=== PATIENT | male | born 1970 | race Caucasian/White ===

== ENCOUNTER 2020-02-08 13:00 | Emergency (ER) | payer OTHER, SELFPAY ==
[2020-02-08 14:43] VITALS: BP 186/110; PULSE 80; RESP 18; TEMP 36.7; BMI 31.0
--- NOTE | 2020-02-08 16:25 | ED.ABDPAIN ---
HPI - Abdominal Pain General Chief Complaint: Abdominal Pain Stated Complaint: kidney pain Time Seen by Provider: 02/08/20 15:30 Source: patient Mode of arrival: ambulatory Limitations: no limitations History of Present Illness MD elicited complaint: flank pain Pertinent past history: none Onset (ago): day(s) (4) Pain Consistency: constant Location: L flank Severity: moderate Quality: aching Radiation: suprapubic Migration to: no migration Exacerbating factors: movement Relieving factors: nothing Associated symptoms: dysuria Treatments prior to arrival: NSAIDs Related Data Previous Rx's Medication Instructions Recorded diazepam [Valium] 5 mg PO TID PRN #10 tab 02/08/20 ibuprofen 600 mg PO Q6H PRN #30 tab 02/08/20 Allergies Allergy/AdvReac Type Severity Reaction Status Date / Time No Known Allergies Allergy Verified 02/08/20 14:48 Review of Systems Review of Systems Constitutional : No Fever, No Chills ENT/Mouth : No sore throat Eyes: No Eye Pain, No Swelling, No Redness Cardiovascular : No Chest Pain, No SOB Respiratory : No Cough, No Sputum, No Wheezing Gastrointestinal : no Nausea, no Vomiting, No Diarrhea, positive abdominal pain Genitourinary : positive Dysuria, positive urinary frequency, noHematuria, positive Flank Pain, positive hesitancy Musculoskeletal : No joint pain, No Myalgias Skin : No Skin Lesions, No rash Neuro : No Weakness, No Numbness, No Headache Psych : No Anxiety/Panic, No Depression Heme/Lymph: No Bruising, No Lymphadenopathy Endocrine : No Polyuria, No Polydipsia All other systems reviewed and are negative Physical Exam Vital Signs: Vital Signs: Vital Signs Temp Pulse Resp BP 02/08/20 14:43 98.1 F 80 18 186/110 H Body Mass Index 31.0 Appearance: Alert. Oriented X3. No acute distress. Eyes: Pupils equal, round and reactive to light. ENT: Pharynx normal. Neck: Normal inspection. Neck supple. CVS: Normal heart rate and rhythm. Pulses normal. Respiratory: No respiratory distress. Breath sounds normal. Abdomen: Soft and ttp LLQ mild Skin: Skin warm and dry. Normal skin color. Normal skin turgor. dry patches on left back no erythema/infection/vesicles Extremities: No lower extremity edema. No calf ttp Neuro: Oriented X 3. No motor deficit. No sensory deficit. Course Course Course Narrative: no acute findings at this time will DC home with medications and MRs, work note MDM - Abdominal Pain MDM Narrative Medical decision making narrative: 49 yo male with L flank pain and left low back pain with dysuria x 4 days, labs, IV morphine for pain, UA, CT scan for renal colic/mass, dispo per results and findings Lab Data Result diagrams: 02/08/20 17:30 02/08/20 17:30 Labs: Lab Results 02/08/20 02/08/20 02/08/20 Range/Units 17:30 17:30 17:30 WBC 7.5 (4.8-10.8) X10*3/uL RBC 4.56 L (4.60-5.80) X10*6/uL Hgb 13.9 L (14.0-18.0) g/dl Hct 41.2 L (42-52) % MCV 90.4 (80-98) fL MCH 30.5 (27.0-33.0) pg MCHC 33.7 (31.0-36.0) g/dl RDW 12.6 (11.0-16.0) % Plt Count 269 (160-400) X10*3/uL MPV 10.9 (9.4-12.4) fL Immature Gran % (Auto) 0.4 (0.0-0.4) % Neut % (Auto) 59.9 (45-73) % Lymph % (Auto) 28.6 (20-40) % Cloud % (Auto) 9.0 (2-11) % Eos % (Auto) 1.6 (0-4) % Baso % (Auto) 0.5 (0-2) % Lymph # (Auto) 2.2 (1.2-4.9) X10*3/uL [place] # (Auto) 0.7 (0.1-1.2) X10*3/uL Eos # (Auto) 0.1 (0.0-0.4) X10*3/uL Baso # (Auto) 0.0 (0.0-0.2) X10*3/uL Abs Immat Gran (auto) 0.03 (0.00-0.03) X10*3/uL Absolute Neuts (auto) 4.5 (2.0-8.3) X10*3/uL Absolute Nucleated RBC 0.000 (0.0-0.012) X10*3/uL Nucleated RBC % (auto) 0.0 (0.0-0.2) /100WBC Hold Blue Top SEE NOTE Sodium 139 (135-145) mmol/L Potassium 4.2 (3.3-5.1) mmol/l Chloride 104 (96-108) mmol/L Carbon Dioxide 26 (22-29) mmol/L Anion Gap 13 (12-20) BUN 18 H (9-16) mg/dL Creatinine 0.74 (0.5-1.4) mg/dL Estim Creat Clear Calc 129.0 Estimated GFR > 60 Random Glucose 117 H (60-115) mg/dL Calcium 9.2 (8.4-10.2) mg/dL Magnesium 2.3 (1.6-2.6) mg/dL Total Bilirubin 0.3 (0.0-1.0) mg/dL Direct Bilirubin < 0.2 (0.0-0.5) mg/dL AST 25 (5-37) U/L ALT 31 (0-40) U/L Alkaline Phosphatase 80 (39-117) U/L Total Protein 8.0 (6.5-8.0) g/dL Albumin 4.6 (3.5-5.0) g/dL Lipase 24 (8-78) U/L Urine Color Urine Appearance Urine pH (5.0-8.0) Ur Specific [place] (1.005-1.025) Urine Protein (NEG-TRACE) MG/DL Urine Glucose (UA) (NEG) MG/DL Urine Ketones (NEG) MG/DL Urine Blood (NEG) Urine Nitrite (NEG) Ur Leukocyte Esterase (NEG) Urine RBC (0) /HPF Urine WBC (0-4) /HPF Ur Squamous Epith Cells /LPF Urine Bacteria /LPF 02/08/20 Range/Units 17:30 WBC (4.8-10.8) X10*3/uL RBC (4.60-5.80) X10*6/uL Hgb (14.0-18.0) g/dl Hct (42-52) % MCV (80-98) fL MCH (27.0-33.0) pg MCHC (31.0-36.0) g/dl RDW (11.0-16.0) % Plt Count (160-400) X10*3/uL MPV (9.4-12.4) fL Immature Gran % (Auto) (0.0-0.4) % Neut % (Auto) (45-73) % Lymph % (Auto) (20-40) % Cloud % (Auto) (2-11) % Eos % (Auto) (0-4) % Baso % (Auto) (0-2) % Lymph # (Auto) (1.2-4.9) X10*3/uL Cloud # (Auto) (0.1-1.2) X10*3/uL Eos # (Auto) (0.0-0.4) X10*3/uL Baso # (Auto) (0.0-0.2) X10*3/uL Abs Immat Gran (auto) (0.00-0.03) X10*3/uL Absolute Neuts (auto) (2.0-8.3) X10*3/uL Absolute Nucleated RBC (0.0-0.012) X10*3/uL Nucleated RBC % (auto) (0.0-0.2) /100WBC Hold Blue Top Sodium (135-145) mmol/L Potassium (3.3-5.1) mmol/l Chloride (96-108) mmol/L Carbon Dioxide (22-29) mmol/L Anion Gap (12-20) BUN (9-16) mg/dL Creatinine (0.5-1.4) mg/dL Estim Creat Clear Calc Estimated GFR Random Glucose (60-115) mg/dL Calcium (8.4-10.2) mg/dL Magnesium (1.6-2.6) mg/dL Total Bilirubin (0.0-1.0) mg/dL Direct Bilirubin (0.0-0.5) mg/dL AST (5-37) U/L ALT (0-40) U/L Alkaline Phosphatase (39-117) U/L Total Protein (6.5-8.0) g/dL Albumin (3.5-5.0) g/dL Lipase (8-78) U/L Urine Color YELLOW Urine Appearance CLEAR Urine pH 5.5 (5.0-8.0) Ur Specific [place] >= 1.030 H (1.005-1.025) Urine Protein NEG (NEG-TRACE) MG/DL Urine Glucose (UA) NEG (NEG) MG/DL Urine Ketones NEG (NEG) MG/DL Urine Blood TRACE (NEG) Urine Nitrite NEG (NEG) Ur Leukocyte Esterase NEG (NEG) Urine RBC 0 (0) /HPF Urine WBC 0 (0-4) /HPF Ur Squamous Epith Cells NONE /LPF Urine Bacteria TRACE /LPF Discharge Plan Discharge Clinical Impression: Left lumbar pain Qualifiers: Chronicity: acute Sciatica presence: without sciatica Qualified Code(s): M54.5 - Low back pain Patient Disposition: Home, Self-Care Instructions: Acute Low Back Pain (ED) Prescriptions: New ibuprofen 600 mg tablet 600 mg PO Q6H PRN (Reason: pain) Qty: 30 RF: 0 diazepam [Valium] 5 mg tablet 5 mg PO TID PRN (Reason: muscle spasm) Qty: 10 RF: 0 Referrals: Physician,None [Primary Care Provider] - 2 days (if not better) Stand Alone Forms: Work/School Release Print Language: Taiwanese [facility] Past Medical History Medical History (Updated 02/08/20 @ 17:47 by Juliann Lewis DO) No active medical problems Social History Social History (Updated 02/08/20 @ 16:32 by Juliann Lewis DO) Alcohol intake: current Smoking Status: Never smoker Advance Directives: No Advance Directives Information Provided: Yes
--- NOTE | 2020-02-08 16:30 | CT_ITS ---
EXAMINATION: CT ABDOMEN AND PELVIS WITHOUT CONTRAST CLINICAL INFORMATION: Left flank pain COMPARISON: None TECHNIQUE: Multidetector volumetric imaging was performed from the superior aspect of the liver through the pubic symphysis. Sagittal and coronal reformatted images were obtained on the technologist's workstation. This CT examination was performed using dose optimization techniques as appropriate, variously including the following: *Automated exposure control *Adjustment of mA and/or kV according to patient size (this includes techniques or standardized protocols for targeted exams where dose is matched to indication/reason for exam; i.e. extremities or head) *Use of iterative reconstruction technique DLP: 681 mGy-cm FINDINGS: LUNG BASES: The visualized lung bases are unremarkable. LIVER, GALLBLADDER, AND BILIARY TREE: The liver is normal in size, shape, and attenuation. No focal hepatic lesion or biliary ductal dilatation is present. The gallbladder is unremarkable with no evidence of radiopaque gallstones, gallbladder wall thickening, or obvious pericholecystic inflammatory changes. PANCREAS: Unremarkable. SPLEEN: Unremarkable. ADRENAL GLANDS: Unremarkable. KIDNEYS AND URETERS: The kidneys are normal in size, shape, and attenuation. No hydronephrosis, hydroureter, or calculi seen. No perinephric stranding. Incidental well-defined low-density lesions right renal cortex measuring fluid attenuation most consistent with cysts. BLADDER: Unremarkable. GASTROINTESTINAL TRACT: The small and large bowel are unremarkable. The appendix is unremarkable. ABDOMINAL WALL: No significant hernia is appreciated. LYMPH NODES: Normal. VASCULAR: Unremarkable. PELVIC VISCERA: Unremarkable. OSSEOUS STRUCTURES: Unremarkable. CT/CT abdomen pelvis wo con IMPRESSION: No stones or obstructive uropathy. No focal findings explain patient's left-sided pain.
[2020-02-08] MEDS: 0.9 % Sodium Chloride 1,000 ML 999 ML IVCONT (17:35)
[2020-02-08] MEDS: Morphine Sulfate 4 MG/ML CARTRIDGE IVPUSH (17:36)
[2020-02-08] MEDS: ondansetron HCL 4 MG/2 ML VIAL IVPUSH (17:36)
[2020-02-08 17:39] LABS: MANUAL DIFF FLAG NO
[2020-02-08 17:40] LABS: Basophils Percent Auto 0.5 % (0-2); Eosinophils Absolute Auto 0.1 X10*3/uL (0.0-0.4); Eosinophils Percent Auto 1.6 % (0-4); Hematocrit 41.2 % (42-52); Hemoglobin 13.9 g/dl (14.0-18.0); Imm Gran Abs Auto 0.03 X10*3/uL (0.00-0.03); Imm Gran Pct Auto 0.4 % (0.0-0.4); Lymphocytes Absolute Auto 2.2 X10*3/uL (1.2-4.9); Lymphocytes Percent Auto 28.6 % (20-40); Mean Corpuscular HGB Conc 33.7 g/dl (31.0-36.0); Mean Corpuscular Hemoglobin 30.5 pg (27.0-33.0); Mean Corpuscular Volume 90.4 fL (80-98); Mean Platelet Volume 10.9 fL (9.4-12.4); Monocytes Absolute Auto 0.7 X10*3/uL (0.1-1.2); Neutrophils Absolute Auto 4.5 X10*3/uL (2.0-8.3); Neutrophils Percent Auto 59.9 % (45-73); Platelet Count 269 X10*3/uL (160-400); Red Blood Count 4.56 X10*6/uL (4.60-5.80); Red Cell Distribution Width 12.6 % (11.0-16.0); White Blood Count 7.5 X10*3/uL (4.8-10.8)
[2020-02-08 17:41] LABS: Appearance Urine CLEAR; Color Urine YELLOW; Glucose Urine UA NEG (NEG); Leukocyte Esterase Urine NEG (NEG); Nitrite Urine NEG (NEG); PH 5.5 (5.0-8.0); Specific Gravity - Urine >= 1.030 (1.005-1.025); Urine Blood TRACE (NEG); Urine Ketones NEG (NEG); Urine Protein NEG (NEG-TRACE)
[2020-02-08 17:48] LABS: RBC Urine 0 /HPF (0); WBC Urine 0 /HPF (0-4)
[2020-02-08 17:49] LABS: Bacteria Urine TRACE /LPF
[2020-02-08 18:08] LABS: Alanine Aminotransferase 31 U/L (0-40); Albumin Level 4.6 g/dL (3.5-5.0); Alkaline Phosphatase 80 U/L (39-117); Anion Gap 13 (12-20); Aspartate Amino Transferase 25 U/L (5-37); Bilirubin Direct < 0.2 mg/dL (0.0-0.5); Bilirubin Total 0.3 mg/dL (0.0-1.0); Blood Urea Nitrogen 18 mg/dL (9-16); Calcium 9.2 mg/dL (8.4-10.2); Carbon Dioxide 26 mmol/L (22-29); Chloride 104 mmol/L (96-108); Estimated Glomerular Filt Rate > 60; Glucose Random 117 mg/dL (60-115); Lipase 24 U/L (8-78); Magnesium 2.3 mg/dL (1.6-2.6); Potassium 4.2 mmol/l (3.3-5.1); Sodium 139 mmol/L (135-145)
[2020-02-08 18:34] VITALS: BP 144/82; PULSE 70; RESP 18
== END 2020-02-08 18:49 | disposition home or self-care (01) ==
PROVIDERS: Emergency Provider Emergency Medicine
DX: M54.5 Low back pain (principal)
CPT/HCPCS: 36415; 74176; 80048; 80076; 81001; 83690; 83735; 85025; 96361; 96374; 96375; 99284; J2270; J2405

== ENCOUNTER 2023-05-26 11:32 | Emergency (ER) | payer MEDICAID, SELFPAY ==
--- NOTE | ~2023-05-26 | XR_ITS ---
EXAMINATION: XR CHEST CLINICAL INFORMATION: Chest pain COMPARISON: Chest x-ray on 02/18/2016 TECHNIQUE: 2 views of the chest were obtained. FINDINGS: vascularity. LUNGS: Lungs are clear. No pneumothorax is seen. BONES: Bony skeleton is intact. XR/XR chest 2V IMPRESSION: Unchanged Normal chest x-ray.
--- NOTE | 2023-05-26 11:36 | ECG_ITS ---
Test Reason : cp Blood Pressure : / mmHG Vent. Rate : 068 BPM Atrial Rate : 068 BPM P-R Int : 158 ms QRS Dur : 090 ms QT Int : 410 ms P-R-T Axes : 005 -37 043 degrees QTc Int : 435 ms Normal sinus rhythm Left axis deviation Nonspecific T wave abnormality Abnormal ECG No previous ECGs available Referred By: Generic ED Physician Electronically Signed By:SANTOS ALDRICH
[2023-05-26 11:43] VITALS: BP 115/76; PULSE 70; O2SAT 93
[2023-05-26 11:55] VITALS: BMI 34.4
--- NOTE | 2023-05-26 12:04 | ED.CHESTPAIN ---
HPI - Chest Pain General Chief Complaint: Chest Pain Stated Complaint: CP,NOT TAKING HTN MEDS, FROM URGENT CARE PER EMS Time Seen by Provider: 05/26/23 12:04 Source: patient and EMS Mode of arrival: EMS Limitations: no limitations History of Present Illness HPI narrative: Patient is a 53 year old assigned male at with a history of HTN, previously on propranolol 80mg BID, presenting to the emergency department today with chest pain. Patient states that he has had chest pain over the last 4 weeks that is worse with exertion. Patient states that he has been out of his blood pressure medication for years and would like to be restarted on it. Patient denies any dizziness, lightheadedness, abdominal pain, nausea, vomiting, fever, chills, blurry vision, double vision, loss of vision, difficulty breathing, shortness of breath, back pain, night sweats, pain with urination, increased urinary frequency, increased urinary urgency, blood in his urine or stool, syncope or a near syncopal episode, recent trauma or falls, bowel incontinence, bladder incontinence, bowel retention, bladder retention, or any other complaints at this time. MD complaint: chest pain Onset (ago): week(s) (4) Timing of current episode: episodic Onset: during exertion Pain radiation: none Severity: mild Pain scale (0-10): 3 Quality: sharp Relieving factors: rest Exacerbating factors: exertion Risk Factors Coronary artery disease risk factors: hypertension Related Data Previous Rx's Medication Instructions Recorded diazepam 5 mg tablet (Valium) 5 mg PO TID PRN muscle spasm #10 02/08/20 tabs ibuprofen 600 mg tablet 600 mg PO Q6H PRN pain #30 tabs 02/08/20 propranolol 80 mg tablet 80 mg PO BID #60 tabs 05/26/23 Allergies Allergy/AdvReac Type Severity Reaction Status Date / Time No Known Allergies Allergy Verified 08/06/21 13:38 Review of Systems Constitutional: Constitutional: Reports no additional constitutional complaints, Denies chills, Denies fever(s) and Denies night sweats Eyes: Eyes: Reports no additional eye complaints, Denies blurry vision, Denies change in vision, Denies diplopia, Denies eye discharge, Denies loss of vision and Denies eye pain ENT: Denies dizziness Cardiovascular: Cardiovascular: Reports no additional cardiovascular complaints, Reports chest pain, Denies lightheadedness, Denies Loss of Consciousness and Denies dyspnea Respiratory: Respiratory: Reports no additional respiratory complaints and Denies dyspnea Gastrointestinal: Gastrointestinal: Reports no additional gastrointestinal complaints, Denies abdominal pain, Denies melena, Denies hematochezia, Denies change in bowel habits and Denies change in stool character Genitourinary: Genitourinary: Reports no additional male genitourinary complaints, Denies hematuria, Denies oliguria, Denies difficulty urinating, Denies dysuria, Denies urinary frequency, Denies urinary hesitancy, Denies urinary incontinence and Denies urinary urgency Musculoskeletal: Musculoskeletal: Reports no additional musculoskeletal complaints, Denies numbness and Denies tingling Neurologic: Denies dizziness, Denies loss of vision, Denies numbness and Denies tingling Psychiatric: Psychiatric: Reports no additional psychiatric complaints Endocrine: Endocrine: Reports no additional endocrine complaints Hematologic/Lymphatic: Hematologic/Lymphatic: Reports no additional hematologic/lymphatic complaints Allergic/Immunologic: Allergic/Immunologic: Reports no additional allergic/immunologic complaints PMFSH Past Medical History Attestation statement: The following information was validated with the patient. Source: old records reviewed and nursing notes reviewed Medical History No active medical problems Social History Social History Alcohol intake: unknown Physical Exam Vital Signs: Vital Signs: Last Vital Signs Temp 98.0 F 05/26/23 15:27 Pulse 84 05/26/23 15:54 Resp 16 05/26/23 15:54 BP 115/69 05/26/23 15:54 Pulse Ox 98 05/26/23 15:54 O2 Del Method Room Air 05/26/23 15:54 BMI result Body Mass Index 34.4 Const: General: no acute distress Nutritional Appearance: well nourished Orientation/consciousness: patient oriented x3 Limitations: no limitations HEENT: Head: Yes normal to inspection and Yes atraumatic Ears: hearing grossly normal bilaterally and external ears normal General nose exam: Normal external nose present, no nasal discharge noted and no epistaxis Face and sinus: Yes normal facial exam, No abrasion and No laceration Mouth: Normal oral and palatal mucosa present, no drooling and no muffled voice Eyes: General: appearance normal, both eyes and all related structures Periorbital: periorbital findings normal Eyelids: Yes eyelids normal Conjunctivae: conjunctivae normal Pupils: Equal, round and reactive pupils present EOM: EOMs intact bilaterally Neck: Neck: Yes normal visual inspection, Yes full ROM and Yes no lymphadenopathy Chest: Chest palpation & inspection: normal inspection of the chest Resp: Effort & Inspection: normal respiratory effort Auscultation: clear to auscultation bilaterally Cardio: Rate: regular rate Rhythm: regular rhythm Heart sounds: S1 normal heart sound present and S2 normal heart sound present GI: Inspection: Yes normal to inspection Neuro: General: patient oriented x3 Cranial nerves: Yes Equal, round and reactive pupils present Cognition (Neuro): normal cognition Motor exam (neuro): 5/5 motor strength present throughout Sensory Exam: Normal double simultaneous stimulation for sensation Coordination: [id number] test normal Extrem: General: Yes normal to inspection, Yes full ROM and Yes capillary refill normal Psych: Appearance: grossly normal Mental Status: mental status grossly normal Affect: normal affect Attitude: cooperative Thought process: Normal thought process present Thought content: Normal thought content present Insight: Good insight present (Psych) Medical Decision Making Medical Decision Making MDM Narrative: Patient is a 53 year old assigned male at with a history of HTN presenting to the emergency department today with intermittent chest pain x 4 weeks. Patient's physical exam was unremarkable. Patient's blood work was unremarkable. Patient's EKG was unremarkable. Patient's chest x-ray showed no acute process. I spoke to the carpet or rug layer helper who recommended outpatient follow up. I explained my physical exam findings as well as all test results to the patient. I answered all questions asked by the patient. I stressed the importance of the patient taking his medication as prescribed. I stressed the importance of the patient following up with his primary care provider and a carpet or rug layer helper. I stressed the importance of the patient returning to the emergency department immediately if his symptoms were to worsen or if he were to develop any dizziness, shortness of breath, difficulty breathing, chest pain, blurry vision, loss of vision, nausea, vomiting, abdominal pain, fever, chills, back pain, or any other complaints. Patient verbalized agreement and understanding with this treatment plan and discharge. Differential Diagnosis Differential Diagnoses: The differential diagnosis associated with the presentation includes STEMI NSTEMI unstable angina Angina Chest pain Atypical chest pain Admission/Observation Consideration of admission/observation: Escalation of care including admission/observation considered Patient would have been admitted to the hospital had his work up had any findings where hospital admission was appropriate and his clinical presentation warranted hospital admission. Consult Healthcare Provider Management of the patient was discussed with: Hairspring Truing Inspector (spoke with the carpet or rug layer helper as noted in the MDM Rational portion of this note. ) Lab Data [facility] Lab Attestation statement: I reviewed the patient's lab results. My interpretation of these results are in the MDM Rationale portion of this note. 05/26/23 12:36 05/26/23 12:36 Labs: Lab Results 05/26/23 05/26/23 Range/Units 12:36 14:47 WBC 6.8 (4.8-10.8) X10*3/uL RBC 4.94 (4.60-5.80) X10*6/uL Hgb 14.5 (14.0-18.0) g/dl Hct 43.0 (42.0-52.0) % MCV 87.0 (80.0-98.0) fL MCH 29.4 (27.0-33.0) pg MCHC 33.7 (31.0-36.0) g/dl RDW 12.4 (11.0-16.0) % Plt Count 250 (160-400) X10*3/uL MPV 11.2 (9.4-12.4) fL Immature Gran % (Auto) 0.3 (0.0-0.4) % Neut % (Auto) 63.6 (45-73) % Lymph % (Auto) 27.4 (20-40) % [place] % (Auto) 6.5 (2-11) % Eos % (Auto) 1.3 (0-4) % Baso % (Auto) 0.9 (0-2) % Lymph # (Auto) 1.9 (1.2-4.9) X10*3/uL [place] # (Auto) 0.4 (0.1-1.2) X10*3/uL Eos # (Auto) 0.1 (0.0-0.4) X10*3/uL Baso # (Auto) 0.1 (0.0-0.2) X10*3/uL Abs Immat Gran (auto) 0.02 (0.00-0.03) X10*3/uL Absolute Neuts (auto) 4.3 (2.0-8.3) x10*3/uL Absolute Nucleated RBC 0.000 (0.0-0.012) X10*3/uL Nucleated RBC % (auto) 0.0 (0.0-0.2) /100WBC Sodium 138 (135-145) mmol/L Potassium 4.0 (3.3-5.1) mmol/L Chloride 103 (96-108) mmol/L Carbon Dioxide 28 (22-29) mmol/L Anion Gap 11 L (12-20) BUN 17 H (9-16) mg/dL Creatinine 0.71 (0.5-1.4) mg/dL Estim Creat Clear Calc 135.2 Estimated GFR > 60 Random Glucose 117 H (60-115) mg/dL Calcium 9.1 (8.4-10.2) mg/dL Magnesium 2.1 (1.6-2.6) mg/dL Total Bilirubin 0.6 (0.0-1.0) mg/dL AST 34 (5-37) U/L ALT 44 H (0-40) U/L Alkaline Phosphatase 76 (39-117) U/L Troponin I High Sens < 2.7 < 2.7 (<3.5-35.0) ng/L B-Natriuretic Peptide 11 (<100) pg/mL Total Protein 7.8 (6.5-8.0) g/dL Albumin 4.3 (3.5-5.0) g/dL COVID-19 (KIMMY) Negative (Negative) COVID-19 Clin Com See Note Independent Interpretation I performed an independent interpretation of an: EKG and Plain X-Ray Interpretation: My interpretation is in agreement with the radiologist's impression of this imaging study. EXAMINATION: XR CHEST CLINICAL INFORMATION: Chest pain COMPARISON: Chest x-ray on 02/18/2016 TECHNIQUE: 2 views of the chest were obtained. FINDINGS: vascularity. LUNGS: Lungs are clear. No pneumothorax is seen. BONES: Bony skeleton is intact. XR/XR chest 2V IMPRESSION: Unchanged Normal chest x-ray. Dictated By: Jasmyn Dawn Signed By: Electronically signed by Jasmyn Dawn 05/26/23 1357 Vent. Rate: 068 BPM Atrial Rate: 068 BPM P-R Int: 158 ms QRS Dur: 090 ms QT Int: 410 ms P-R-T Axes: 005 -37 043 degrees QTc Int: 435 ms Normal sinus rhythm Left axis deviation Nonspecific T wave abnormality Abnormal ECG No previous ECGs available Electronically Signed By:FLORENCIO ALDRICH Dictated By: Florencio Aldrich MD Signed By: Electronically signed by Florencio Aldrich MD 05/26/23 1310 Radiology Impression Discussion of test interpretation with radiology: I have reviewed the radiologist's reading. Independent Historian Clinical information obtained from an independent historian. History obtained from or confirmed by: EMS (EMS provided additional history and confirmed the history provided by the patient.) Chronic Conditions Patient?s care impacted by: Hypertension Discharge Plan Discharge Clinical Impression: Atypical chest pain Patient Disposition: Home, Self-Care Instructions: Chest Pain (DC) Additional Instructions: Follow up with your primary care provider and a carpet or rug layer helper. Your blood work, EKG, and chest x-ray were all reassuring that you are not having a heart attack at this time. Return to the emergency department immediately if your symptoms worsen or if you develop any dizziness, shortness of breath, difficulty breathing, chest pain, blurry vision, loss of vision, nausea, vomiting, abdominal pain, fever, chills, back pain, or any other complaints. Edvin un seguimiento con siegel proveedor de atenci?n primaria y un cardi?logo. Viviana an?lisis de juan, electrocardiograma y radiograf?a de t?rax confirmaron que no est? sufriendo un ataque card?aco en nadine momento. Regrese al departamento de emergencias inmediatamente si viviana s?ntomas empeoran o si presenta mareos, dificultad para respirar, dificultad para respirar, dolor en el pecho, visi?n borrosa, p?rdida de la visi?n, n?useas, v?mitos, dolor abdominal, fiebre, escalofr?os, dolor de espalda o cualquier otras quejas. Prescriptions: New propranolol 80 mg tablet 80 mg PO BID Qty: 60 0RF No Action ibuprofen 600 mg tablet 600 mg PO Q6H PRN (Reason: pain) Qty: 30 0RF diazepam [Valium] 5 mg tablet 5 mg PO TID PRN (Reason: muscle spasm) Qty: 10 0RF Referrals: [facility] Cardiovascular Services [Provider Group] (Call to establish and follow up with a carpet or rug layer helper. Llame para establecer y hacer un seguimiento con un cardi?logo. ) [facility] Family Medicine [Provider Group] (Call to establish and follow up with a primary care provider. If you already have a primary care provider, please follow up with them. Llame para establecer y realizar un seguimiento con un proveedor de atenci?n primaria. Si ya tiene un proveedor de atenci?n primaria, edvin un seguimiento con ?l.) [facility] Primary Care, [facility] [Provider Group] (Call to establish and follow up with a primary care provider. If you already have a primary care provider, please follow up with them. Llame para establecer y realizar un seguimiento con un proveedor de atenci?n primaria. Si ya tiene un proveedor de atenci?n primaria, edvin un seguimiento con ?l.) [facility] [Provider Group] (Call to establish and follow up with a primary care provider. If you already have a primary care provider, please follow up with them. Llame para establecer y realizar un seguimiento con un proveedor de atenci?n primaria. Si ya tiene un proveedor de atenci?n primaria, edvin un seguimiento con ?l.) Interventions: ED Discharge Assessment Last Done: 05/26/23 15:58 Discharge Date/Time: 05/26/23 16:00 Print Language: Korean
[2023-05-26 12:31] VITALS: BP 139/81; PULSE 63; RESP 13; TEMP 36.7; O2SAT 98
[2023-05-26 12:42] LABS: MANUAL DIFF FLAG NO
[2023-05-26 12:44] LABS: Basophils Absolute Auto 0.1 X10*3/uL (0.0-0.2); Basophils Percent Auto 0.9 % (0-2); Eosinophils Absolute Auto 0.1 X10*3/uL (0.0-0.4); Eosinophils Percent Auto 1.3 % (0-4); Hemoglobin 14.5 g/dl (14.0-18.0); Imm Gran Abs Auto 0.02 X10*3/uL (0.00-0.03); Imm Gran Pct Auto 0.3 % (0.0-0.4); Lymphocytes Absolute Auto 1.9 X10*3/uL (1.2-4.9); Lymphocytes Percent Auto 27.4 % (20-40); Mean Corpuscular HGB Conc 33.7 g/dl (31.0-36.0); Mean Corpuscular Hemoglobin 29.4 pg (27.0-33.0); Mean Platelet Volume 11.2 fL (9.4-12.4); Monocytes Absolute Auto 0.4 X10*3/uL (0.1-1.2); Monocytes Percent Auto 6.5 % (2-11); Neutrophils Absolute Auto 4.3 x10*3/uL (2.0-8.3); Neutrophils Percent Auto 63.6 % (45-73); Platelet Count 250 X10*3/uL (160-400); Red Blood Count 4.94 X10*6/uL (4.60-5.80); Red Cell Distribution Width 12.4 % (11.0-16.0); White Blood Count 6.8 X10*3/uL (4.8-10.8)
[2023-05-26 12:56] LABS: COVID-19 Test Negative (Negative); IDNOW Serial# 6674DD1D
[2023-05-26 13:00] LABS: Alanine Aminotransferase 44 U/L (0-40); Albumin Level 4.3 g/dL (3.5-5.0); Alkaline Phosphatase 76 U/L (39-117); Anion Gap 11 (12-20); Aspartate Amino Transferase 34 U/L (5-37); Bilirubin Total 0.6 mg/dL (0.0-1.0); Blood Urea Nitrogen 17 mg/dL (9-16); Calcium 9.1 mg/dL (8.4-10.2); Carbon Dioxide 28 mmol/L (22-29); Chloride 103 mmol/L (96-108); Creatinine Clr Calc Pharmacy 135.2; Estimated Glomerular Filt Rate > 60; Glucose Random 117 mg/dL (60-115); Magnesium 2.1 mg/dL (1.6-2.6); Sodium 138 mmol/L (135-145); Total Protein 7.8 g/dL (6.5-8.0)
[2023-05-26 13:06] LABS: B Type Natriuretic Peptide 11 pg/mL (<100)
[2023-05-26 13:08] LABS: Troponin-I High Sensitivity < 2.7 ng/L (<3.5-35.0)
[2023-05-26 15:12] LABS: Troponin-I High Sensitivity < 2.7 ng/L (<3.5-35.0)
[2023-05-26 15:27] VITALS: BP 140/71; PULSE 60; RESP 15; TEMP 36.7; O2SAT 97
[2023-05-26 15:54] VITALS: BP 115/69; PULSE 84; RESP 16; O2SAT 98
== END 2023-05-26 16:00 | disposition home or self-care (01) ==
PROVIDERS: Physician Assistant Medical; Emergency Provider Emergency Medicine
DX: R07.89 Other chest pain (principal); R06.02 Shortness of breath; Z79.899 Other long term (current) drug therapy; Z11.52 Encounter for screening for COVID-19; Z91.148 Patient's other noncompliance with medication regimen for other reason
CPT/HCPCS: 36415; 71046; 80053; 83735; 83880; 84484; 85025; 87635; 93005; 99283; 99285

== ENCOUNTER → 2023-05-26 11:36 | Outpatient (BNV) | payer MEDICAID, SELFPAY | PROVIDERS: Emergency Provider Emergency Medicine; Visit Provider Internal Medicine | DX: R94.31 Abnormal electrocardiogram [ECG] [EKG] (principal) | CPT/HCPCS: 93010 ==

== ENCOUNTER 2023-08-15 08:43 | Outpatient (REF) | payer MEDICAID, SELFPAY ==
[2023-08-15 11:34] LABS: MANUAL DIFF FLAG NO
[2023-08-15 11:41] LABS: Basophils Absolute Auto 0.1 X10*3/uL (0.0-0.2); Eosinophils Absolute Auto 0.1 X10*3/uL (0.0-0.4); Eosinophils Percent Auto 1.9 % (0-4); Hematocrit 44.5 % (42.0-52.0); Hemoglobin 14.7 g/dl (14.0-18.0); Imm Gran Abs Auto 0.01 X10*3/uL (0.00-0.03); Imm Gran Pct Auto 0.2 % (0.0-0.4); Lymphocytes Absolute Auto 1.7 X10*3/uL (1.2-4.9); Lymphocytes Percent Auto 28.3 % (20-40); Mean Corpuscular Hemoglobin 29.3 pg (27.0-33.0); Mean Corpuscular Volume 88.8 fL (80.0-98.0); Monocytes Absolute Auto 0.4 X10*3/uL (0.1-1.2); Monocytes Percent Auto 7.4 % (2-11); Neutrophils Absolute Auto 3.6 x10*3/uL (2.0-8.3); Neutrophils Percent Auto 61.2 % (45-73); Platelet Count 250 X10*3/uL (160-400); Red Blood Count 5.01 X10*6/uL (4.60-5.80); White Blood Count 5.8 X10*3/uL (4.8-10.8)
[2023-08-15 12:28] LABS: Estimated Average Glucose 120 mg/dL; Hemoglobin A1c % 5.8 % (<6.0)
[2023-08-15 13:15] LABS: Alanine Aminotransferase 36 U/L (0-40); Albumin Level 4.4 g/dL (3.5-5.0); Alkaline Phosphatase 76 U/L (39-117); Anion Gap 9 (12-20); Aspartate Amino Transferase 29 U/L (5-37); Bilirubin Direct 0.2 mg/dL (0.0-0.5); Bilirubin Total 0.6 mg/dL (0.0-1.0); Blood Urea Nitrogen 15 mg/dL (9-16); Calcium 9.6 mg/dL (8.4-10.2); Carbon Dioxide 31 mmol/L (22-29); Chloride 104 mmol/L (96-108); Cholesterol 187 mg/dL (<200); Estimated Glomerular Filt Rate > 60; Glucose Random 102 mg/dL (60-115); HDL Cholesterol 41 mg/dL (>40); LDL Cholesterol Calculated 128 mg/dL (<100); Potassium 4.2 mmol/L (3.3-5.1); Sodium 140 mmol/L (135-145); Triglycerides 90 mg/dL (<150)
[2023-08-15 13:29] LABS: HIV AB/AG Nonreactive (Nonreactive); HIV Num 1 0.05 S/CO (0.00-0.99)
[2023-08-15 13:40] LABS: ~HepC Num1 0.26 S/CO (0.00-0.79); ~Hepatitis C Antibody Nonreactive (Nonreactive)
[2023-08-17 10:09] LABS: RPR Rapid Plasma Reagin NON-REACTIVE (NON-REACTIVE)
== END 2023-08-15 08:44 | disposition home or self-care (01) ==
LOC: HO.HHCL 08:43
PROVIDERS: Visit Provider Internal Medicine
DX: Z11.4 Encounter for screening for human immunodeficiency virus [HIV] (principal); I10 Essential (primary) hypertension
CPT/HCPCS: 36415; 80048; 80061; 80076; 83036; 85025; 86592; 86803; 87389

== ENCOUNTER → 2023-08-23 20:30 | Outpatient (REF) | payer MEDICAID, SELFPAY | LOC: HO.SL 20:30 | PROVIDERS: PCP Internal Medicine; Visit Provider Internal Medicine | DX: G47.33 Obstructive sleep apnea (adult) (pediatric) (principal); R06.83 Snoring | CPT/HCPCS: 95811 ==

== ENCOUNTER → 2023-08-24 20:30 | Outpatient (BNV) | payer MEDICAID, SELFPAY | PROVIDERS: PCP Internal Medicine; Visit Provider Internal Medicine | DX: G47.33 Obstructive sleep apnea (adult) (pediatric) (principal) | CPT/HCPCS: 95811 ==

== ENCOUNTER 2023-11-14 09:04 | Outpatient (AMB) | payer MEDICAID, SELFPAY ==
--- NOTE | 2023-11-14 09:05 | A.OFFVIS_ITS ---
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 He is a 53-year-old male who presented to emergency room in May with exertional chest pain. He came requesting to the hospital saying that he has not been taking his blood pressure medications for many years. When he came to the hospital blood pressure is not significantly elevated. EKG showed nonspecific changes at that time with negative troponins. He subsequently started on his usual medicines with propranolol and atorvastatin. He presents here and is accompanied by his . History was obtained with help of a certified translator and interpreter over the telephone. Patient says that since been started on propranolol therapy his symptoms have improved and milder but he has continues to get chest pain which she described as pressure/sharp discomfort when he is exerting himself like going up a flight of stairs and/or rushing. 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 With his usual day-to-day work he does not feel any significant chest pain. is worried as has strong family history for premature coronary disease in his mother. EKG today shows further T-wave inversion inferolateral leads concerning for ischemia. Patient denies any symptoms at rest. Denies any heart failure symptoms. Denies any orthopnea, PND, leg edema. No prolonged palpitations irregular heartbeat. [facility] Medical History (Updated 11/14/23 @ 09:38 by Ross Rodrigez MD) HTN (hypertension) No active medical problems Surgical History Hx of knee surgery Family History Father HTN (hypertension) Mother CAD (coronary artery disease) HTN (hypertension) Stroke Social History Alcohol intake: unknown Review of Systems Const Denies chills, Denies daytime sleepiness, Denies fatigue, Denies fever(s), Denies frequent falls, Denies poor appetite, Denies snoring, Denies stops breathing during sleep, Denies weakness, Denies weight gain and Denies weight loss Eyes Denies loss of vision ENT Denies dizziness and Denies hearing loss Card Reports chest pain, Denies claudication, Denies leg edema, Denies lightheadedness, Denies palpitations, Denies dyspnea, Denies dyspnea on exertion and Denies orthopnea Resp Denies cough, Denies excessive phlegm production, Denies dyspnea, Denies dyspnea on exertion, Denies snoring and Denies wheezing GI Denies abdominal pain, Denies hematochezia, Denies change in bowel habits, Denies nausea and Denies vomiting Denies dysuria and Denies urinary frequency Musc Denies arthralgias, Denies muscle weakness, Denies numbness and Denies other (frequent falls) Skin/Breast Denies nail changes and Denies rash Neuro Denies Abnormal speech present, Denies dizziness, Denies frequent falls, Denies loss of vision, Denies memory loss, Denies numbness and Denies weakness Psych Denies depression and Denies memory loss Endo Denies fatigue and Denies palpitations Malachi/Lymph Reports easy bruising and Reports other (anemia) Aller/Immun Denies wheezing Physical Exam Vital Signs: Last Vital Signs Pulse 54 11/14/23 09:06 BP 120/70 11/14/23 09:06 BMI result Body Mass Index 34.9 Const General: cooperative, comfortable, no acute distress, alert, awake and Physi crystal active Nutritional Appearance: obese Orientation/consciousness: patient oriented x3 Limitations: no limitations HEENT Head: Yes normocephalic and Yes atraumatic Neck Neck: Yes trachea midline, Yes supple and Yes no JVD Resp Effort & Inspection: normal respiratory effort Auscultation: clear to auscultation bilaterally Cardio Jugular venous distension: no JVD Palpation: normal PMI Rate: regular rate Rhythm: regular rhythm Heart sounds: S1 normal heart sound present, S2 normal heart sound present, no click, no gallops and no murmurs GI Auscultation: normal bowel sounds Skin General skin exam: no rashes or lesions noted Neuro General: patient oriented x3 and no focal motor deficits Speech: No Abnormal speech present Extrem General: Yes no clubbing, cyanosis or edema Psych Appearance: grossly normal Office Procedures EKG Details: EKG shows normal sinus rhythm with borderline LVH with small Q-waves in high lateral leads with T-wave inversion inferior and anterolateral leads consistent with ischemia, worse than EKG from May. [id number], Complete Assessment & Plan Assessment & Plan (1) Exertional chest pain: Code(s): R07.9 - Chest pain, unspecified Category: Medical Plan: Exertional chest pain in this middle-aged man who has been having this pain since May with improved symptoms on propranolol therapy. EKG shows further worsening and changes suggestive of ischemia in inferolateral leads. These EKG changes addition to his risk factors of hypertension, hyperlipidemia and family history are concerning for myocardial ischemia. I would suggest given that his chest pain is still exertional in nature with no resting chest pain to pursue exercise myocardial perfusion imaging to evaluate for myocardial ischemia and further assess prognosis. This was discussed with him. Also suggest an echocardiogram as possible this chest pain could be related to hypertensive heart disease. Echo to evaluate for LV systolic and diastolic function as well as hypertensive heart disease and pulmonary hypertension. These tests will be scheduled in near future. Meanwhile his blood pressure is currently well optimized. Continue high-intensity statin therapy. Continue low-dose aspirin therapy. He is advised to seek emergency care for resting chest discomfort and avoid sudden strenuous isometric exercise. Follow up in the clinic in 4 weeks time, sooner p.r.n.. Thank you for allowing me to partake in his care Coding Level of Care Code New Pt Level 4 (58326) Diagnoses Exertional chest pain R07.9 CPT Codes EKG - CPT: 56212-[id number], Complete ([id number])
[2023-11-14 09:06] VITALS: BP 120/70; PULSE 54; BMI 34.9
== END 2023-11-14 09:38 | disposition home or self-care (01) ==
PROVIDERS: PCP Internal Medicine; Visit Provider Internal Medicine Cardiovascular Disease
DX: R07.9 Chest pain, unspecified (principal)
CPT/HCPCS: 93010; 99204

== ENCOUNTER → 2023-11-14 09:04 | Outpatient (BNVA) | payer MEDICAID, SELFPAY | PROVIDERS: PCP Internal Medicine; Visit Provider Internal Medicine Cardiovascular Disease | DX: R07.9 Chest pain, unspecified (principal); R00.1 Bradycardia, unspecified; R94.31 Abnormal electrocardiogram [ECG] [EKG] | CPT/HCPCS: 93005; 99202 ==

== ENCOUNTER 2023-11-15 20:19 | Emergency (ER) | payer MEDICAID, SELFPAY ==
--- NOTE | ~2023-11-15 | XR_ITS ---
EXAMINATION: XR FINGER, LEFT CLINICAL INFORMATION: Crush injury to the left thumb. COMPARISON: None available. TECHNIQUE: Frontal view of the left hand. 2 cone-down views of the left lung. FINDINGS: There is a small chip fracture off the distal tuft of the distal phalanx of the thumb adjacent to a soft tissue laceration. There is a nondisplaced longitudinal linear fracture extending from the distal tuft to the mid shaft of the distal phalange. No radiopaque foreign body. XR/XR finger LT min 2V IMPRESSION: Small chip fracture off the distal tuft of the distal phalanx of the thumb. Nondisplaced fracture of the distal phalange distal shaft.
[2023-11-15 20:53] VITALS: BP 140/80; PULSE 66; RESP 18; TEMP 36.8; O2SAT 98; BMI 33.5
[2023-11-15 22:00] VITALS: BP 135/74; PULSE 52; RESP 14; TEMP 36.6; O2SAT 94
[2023-11-16] MEDS: oxyCODONE HCl Immed Release 5 MG TABLET PO (00:04)
[2023-11-16] MEDS: Diphth,Pertus(ACell),Tet Adult 0.5 ML SYRINGE IM (00:07)
--- NOTE | 2023-11-16 00:11 | ED.LOWEXIN ---
HPI - Extremity Injury (Lower) General Chief Complaint: Extremity Injury, Lower Stated Complaint: left thumb wound Time Seen by Provider: 11/15/23 22:09 Source: patient and family Mode of arrival: ambulatory Limitations: no limitations History of Present Illness ED Provider: Dr. Svetlana Jalloh HPI Narrative: Patient comes to the emergency room complaining of pain in the thumb of the left hand. 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 Patient states that he was able to control the bleeding at home, continued working and then his made him come to the emergency room. Patient states that he does not know when he got his last Tdap booster. Related Data Home Medications ?Medication ?Instructions ?Recorded ?Confirmed atorvastatin 40 mg tablet 40 mg PO DAILY 11/14/23 11/14/23 Previous Rx's ?Medication ?Instructions ?Recorded diazepam 5 mg tablet (Valium) 5 mg PO TID PRN muscle spasm #10 02/08/20 tabs ibuprofen 600 mg tablet 600 mg PO Q6H PRN pain #30 tabs 02/08/20 propranolol 80 mg tablet 80 mg PO BID #60 tabs 05/26/23 aspirin 81 mg tablet,delayed 81 mg PO DAILY #30 tabs 11/14/23 release (Ecotrin Low Strength) cephalexin 500 mg capsule 500 mg PO BID #14 caps 11/16/23 ibuprofen 600 mg tablet 600 mg PO TID PRN fever or pain 11/16/23 #20 tabs Allergies Allergy/AdvReac Type Severity Reaction Status Date / Time No Known Allergies Allergy Verified 11/15/23 20:55 Review of Systems Review of Systems: Constitutional : No Weight loss, No Fever, No Chills, No Night Sweats, No Fatigue, No Malaise ENT/Mouth : No Hearing loss, No Ear Pain, No Nasal Congestion, No Sinus Pain, No Hoarseness, No sore throat, No Rhinorrhea, No Swallowing Difficulty Eyes: No Eye Pain, No Swelling, No Redness, No Foreign Body, No Discharge, No Vision Changes Cardiovascular : No Chest Pain, No SOB, No Dyspnea on Exertion, No Orthopnea, No Edema, No Palpitations Respiratory : No Cough, No Sputum, No Wheezing, No Smoke Exposure, No Dyspnea Gastrointestinal : No Nausea, No Vomiting, No Diarrhea, No Constipation, No abdominal Pain, No Hematochezia, No Melena Genitourinary : no irregular bleeding, No Dysuria, No Urinary Frequency, No Hematuria, No Urinary Incontinence, No Urgency, No Flank Pain, No Urinary Flow Changes, No Hesitancy Musculoskeletal : No joint pain, No Myalgias, No Joint Swelling Skin : No Skin Lesions, No rash, laceration at the tip of the thumb of the left hand, going to have of the finger nail Neuro : No Weakness, No Numbness, No Paresthesias, No Loss of Consciousness, No Dizziness, No Headache Psych : No Anxiety/Panic, No Depression, No SI/HI/AH/VH, No Social Issues, Heme/Lymph: No Bruising, No Bleeding,No Lymphadenopathy Endocrine : No Polyuria, No Polydipsia, No Temperature Intolerance [facility] Past Medical History Medical History HTN (hypertension) No active medical problems Surgical History Hx of knee surgery Family History Family History Father HTN (hypertension) Mother CAD (coronary artery disease) HTN (hypertension) Stroke Social History Social History Alcohol intake: unknown Advance Directives: No Advance Directives Information Provided: No Physical Exam Vital Signs: Vital Signs: Last Vital Signs Temp 97.8 F 11/15/23 22:00 Pulse 52 11/15/23 22:00 Resp 14 11/15/23 22:00 BP 135/74 11/15/23 22:00 Pulse Ox 94 11/15/23 22:00 O2 Del Method Room Air 11/15/23 22:00 BMI result Body Mass Index 33.5 Const: Other: Appearance: Alert. Oriented X3. No acute distress. Eyes: Pupils equal, round and reactive to light. ENT: Pharynx normal. Neck: Normal inspection. Neck supple. No lymph nodes noted. No crepitus CVS: Normal heart rate and rhythm. Pulses normal. Normal S1 and S2 Respiratory: No respiratory distress. Breath sounds normal. No Wheezing. No rales Abdomen: Soft and nontender. No rigidity. No distention. Skin: Skin warm and dry. Normal skin color. Normal skin turgor. Extremities: No lower extremity edema. No Lacerations. No Rash. The thumb of the left hand is lacerated, laceration goes from the front of the fingernail to the posterior aspect of the palmar aspect of the thumb, approximately 4 mm. Patient is able to flex and extend and oppose the thumb Neuro: Oriented X 3. No motor deficit. No sensory deficit. Moving all extremities. No slurred speech. CN 2 through 12 grossly intact Psych: calm, cooperative, normal affect Medications Administered Discontinued Medications Generic Name Dose Route Start Last Admin Trade Name Freq PRN Reason Stop Dose Admin Diphtheria/Tetanus/Acell Pertussis 0.5 ml 11/15/23 22:30 11/16/23 00:07 Diphth,Pertus(Acell),Tet Adult 0.5 Ml Syringe IM 11/15/23 22:31 0.5 ml .ONCE ONE Administration Lidocaine HCl 6 ml 11/15/23 22:33 11/16/23 00:08 Lidocaine Hcl 2% 2 Ml Vial INFILTRATI 11/15/23 22:34 6 ml ONCE ONE Administration Oxycodone HCl 5 mg 11/15/23 22:30 11/16/23 00:04 Oxycodone Hcl Immed Release 5 Mg Tablet PO 11/15/23 22:31 5 mg ONCE ONE Administration Medical Decision Making Medical Decision Making MDM Narrative: Patient's finger was soaked in Betadine solution and normal saline. -once the finger was numbed with lidocaine, we were able to clean it deeper. -my interpretation of x-ray, crushed distal aspect of the fingertip of the thumb. This is an exposed fracture -patient was given Tdap, Ancef, p.o. oxycodone -patient did for stitches -patient instructed to follow-up with his primary care physician and Orthopedics. Independent Interpretation I performed an independent interpretation of an: Plain X-Ray Radiology Impression Discussion of test interpretation with radiology: I have reviewed the radiologist's reading. Radiologist Impression: FINDINGS: There is a small chip fracture off the distal tuft of the distal phalanx of the thumb adjacent to a soft tissue laceration. There is a nondisplaced longitudinal linear fracture extending from the distal tuft to the mid shaft of the distal phalange. No radiopaque foreign body. XR/XR finger LT min 2V IMPRESSION: Small chip fracture off the distal tuft of the distal phalanx of the thumb. Nondisplaced fracture of the distal phalange distal shaft. Procedures Laceration Laceration 1: Site: hand Side (If applicable): left Size (cm): 2 Description: linear Depth: involves muscle layer Local Anesthetic: lidocaine 1% Amount of anesthesia used (mL): 8 Pre-repair: wound explored and irrigated extensively Skin layer closed with: nylon Size (cm): 3-0 Number of sutures: 4 Technique: simple, interrupted Discharge Plan Discharge Clinical Impression: Laceration of finger, Fx phalanges, hand-open Patient Disposition: Home, Self-Care Instructions: Laceration (ED), Finger Fracture (ED) Additional Instructions: Your stitches need to be removed in 7-10 days. Please follow-up with your primary care physician tomorrow. Also call tomorrow orthopedics to schedule an appointment. If you have any worsening or new symptoms, please return to the emergency room or call 911 Prescriptions: New cephalexin 500 mg capsule 500 mg PO BID Qty: 14 0RF ibuprofen 600 mg tablet 600 mg PO TID PRN (Reason: fever or pain) Qty: 20 0RF No Action ibuprofen 600 mg tablet 600 mg PO Q6H PRN (Reason: pain) Qty: 30 0RF diazepam [Valium] 5 mg tablet 5 mg PO TID PRN (Reason: muscle spasm) Qty: 10 0RF propranolol 80 mg tablet 80 mg PO BID Qty: 60 0RF atorvastatin 40 mg tablet 40 mg PO DAILY aspirin [Ecotrin Low Strength] 81 mg tablet,delayed release (DR/EC) 81 mg PO DAILY Qty: 30 5RF Referrals: Brendon Gonzáles PA-C [Physician Digital Media Intern] - 11/17/23 Print Language: Ecuadorean
[2023-11-16 01:28] VITALS: BP 144/96; PULSE 68; RESP 20; TEMP 37; O2SAT 99
== END 2023-11-16 01:01 | disposition home or self-care (01) ==
PROVIDERS: Emergency Provider Emergency Medicine; PCP Internal Medicine
DX: S61.412A Laceration without foreign body of left hand, initial encounter (principal); S62.609A Fracture of unspecified phalanx of unspecified finger, initial encounter for closed fracture; M79.642 Pain in left hand; Y29.XXXA Contact with blunt object, undetermined intent, initial encounter; Y93.89 Activity, other specified; Y92.59 Other trade areas as the place of occurrence of the external cause; Y99.0 Civilian activity done for income or pay
CPT/HCPCS: 12041; 73140; 90471; 90715; 96372; 99284; J0690

== ENCOUNTER 2023-11-22 10:15 | Outpatient (REF) | payer MEDICAID, SELFPAY ==
--- NOTE | ~2023-11-22 | XR_ITS ---
EXAMINATION: XR HAND, LEFT CLINICAL INFORMATION: Pain in the left hand COMPARISON: X-rays of the left thumb October 2023 TECHNIQUE: PA, lateral, and oblique views of the left hand. FINDINGS: No minimally displaced oblique comminuted fractures of the distal phalanx of the thumb unchanged. HISTORY: Joint: Mild osteoarthritis manifest by marginal osteophytes. Small ossification distal to the ulnar styloid likely reflecting ossicle rather than fracture fragment and overall unchanged. Small cyst in the lunate compatible with focal arthrosis of the radiocarpal compartment or incidental cortical cyst. Remaining bones joints and soft tissues unremarkable. XR/XR hand LT min 3V IMPRESSION: Stable minimally displaced comminuted fracture of the distal phalanx of the thumb. 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 Possible osteoarthritis of the radiocarpal/ulnocarpal joint versus an incidental carpal cyst in the lunate. No change. Electronically signed by: Neel Brown MD 12/19/2023 01:18 PM EDT RP
== END 2023-11-22 10:16 | disposition home or self-care (01) ==
LOC: HO.HOSX 10:15
PROVIDERS: Visit Provider Orthopaedic Surgery
DX: M79.642 Pain in left hand (principal); S62.522B Displaced fracture of distal phalanx of left thumb, initial encounter for open fracture
CPT/HCPCS: 26750; 73130; 99202

== ENCOUNTER 2023-11-22 12:54 | Outpatient (AMB) | payer MEDICAID, SELFPAY ==
--- NOTE | 2023-11-22 13:02 | MHC.OFFVIS ---
Vital Signs 11/22/23 13:03 Height 5 ft 8 in Weight 220 lb BMI 33.4 Intake Visit Reasons: FC-Laceration of finger, Fx phalanges, LT thumb Intake Note: Van is a 53 yo right hand dominant male who presents today with his for ED follow up s/p left thumb laceration as well as small chip fracture off the distal tuft of the distal phalanx, DOI 11/16/23. 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 Patient reports numbness and tingling but denies locking on fingers. Reports taking Ibuprofen for pain with relief. Patient denies prior surgeries or injuries. Currently taking Keflex abx and applying neosporin. Patient states about 2 stitches came off on their on when he removed a band aid he had put on to cover incision. Supervisor Accounting Clerks Required: Yes Supervisor Accounting Clerks Language: Electrical Engineering Director Services: Supervisor Accounting Clerks Present Supervisor Accounting Clerks Name: TysonSENAIT cruz/CAROL Information Interpreted: clinical only Accompanied by: Spouse Allergies No Known Allergies Allergy (Verified 11/22/23 13:03) HPI HPI FC-Laceration of finger, Fx phalanges, LT thumb: Details: Van is a 53 year old right hand dominant Malaysian speaking man who presents for a left thumb injury. He says the tip of his left thumb was injured when using a tool at work, DOI: 11/16/23. He was seen in the ED the same day where his thumb was sutured shut and given PO Abx. He is self-employed. He complains of pain in his thumb. He says his pain is worse at night and he describes this as throbbing . He continues to take his Abx as instructed. He reports numbness & tingling in his thumb, which was not present prior to his injury. He denies any numbness in any other digits. He denies any locking or catching. [facility] Medical History HTN (hypertension) No active medical problems Surgical History Hx of knee surgery Family History Father HTN (hypertension) Mother CAD (coronary artery disease) HTN (hypertension) Stroke Social History (Updated 11/22/23 @ 13:29 by SENAIT Matos) Alcohol intake: unknown Current occupational status: unemployed Current occupation: rt handed Review of Systems Const All systems reviewed & are unremarkable except as noted in HPI and below Physical Exam Vital Signs: BMI result Body Mass Index 33.4 Const General: cooperative, healthy appearing and no acute distress Orientation/consciousness: patient oriented x3 HEENT Head: Yes normocephalic and Yes atraumatic Eyes EOM: EOMs intact bilaterally Resp Effort & Inspection: normal respiratory effort and able to speak in complete sentences Cardio Jugular venous distension: no JVD Skin General skin exam: turgor normal Rashes: no rashes Neuro General: patient oriented x3 Extrem Other: Evaluation of Left Upper Extremity: The patient is alert, oriented, and in no acute distress He can make a fist and extend all his digits Good flexor and extensor tendon function to the tip of the thumb. Weak flexion & extension at the IP joint Longitudinally oriented laceration and fracture to the tip of the thumb, with a longitudinal split of the nail The nail appears to be attached to the nailbed He has sutures in the tip and pad of the thumb The pad of the thumb is not tender Tender over the fracture site Sensation intact to the tip with good cap refill. good cap refill No drainage or evidence of infection Radiographs: 3 views of the left hand, with attention tot he thumb, were taken and viewed by me today in clinic. They show a comminuted, minimally displaced, distal phalanx tuft fracture of the thumb, extra-articular, with extension from the tuft to the body of the thumb distal phalanx. Psych Appearance: grossly normal Affect: normal affect Attitude: cooperative Office Procedures Fracture Care Details: Fracture care [id number] Fracture Billing Code: Fracture Billing Code Assessment & Plan Assessment & Plan (1) Open fracture of tuft of distal phalanx of left thumb: Code(s): S62.522B - Displaced fracture of distal phalanx of left thumb, initial encounter for open fracture Category: Medical Plan Assessment & Plan: 1. Left thumb open distal phalanx fracture, comminuted, minimally displaced, extra-articular, 2. And associated longitudinally oriented nail bed injury. S/P injury, DOI: 11/16/23 I educated him about this condition I discussed operative and non-operative treatment options I believe we can manage this non-operative with wound care and splinting I explained the signs and symptoms of infection, if the patient develops any new or worsening erythema, drainage, pain, or warmth they should contact the clinic or attend the ED. I ordered a new course of Bactrim to take for the next 7 days He will follow up next week for a wound check with GLORAI Randall Scribed for Aide Lofton MD by Jack Lombardi, medical lab assistant, on 11/22/23 at 1:45 PM, EST. Orders: Orders XR hand LT min 3V Today Aide Lofton MD M79.642 - Pain in left hand Medications: New sulfamethoxazole-trimethoprim 800-160 mg (Bactrim DS) 1 tab PO BID 14 days 28 tabs 0RF Open fx of L thumb GLORIA Cody Discontinued cephalexin Discontinued Reason: Doctor's Order 500 mg PO BID 14 caps 0RF Coding Level of Care Code New Pt Level 3 (00557) Diagnoses Open fracture of tuft of distal phalanx of left thumb S62.522B CPT Codes Fracture Care - Fracture Billing Code: Fracture Billing Code ([id number])
[2023-11-22 13:03] VITALS: BMI 33.4
== END 2023-11-22 14:35 | disposition home or self-care (01) ==
PROVIDERS: PCP Internal Medicine; Referring Provider Internal Medicine; Visit Provider Orthopaedic Surgery
DX: S62.522B Displaced fracture of distal phalanx of left thumb, initial encounter for open fracture (principal)
CPT/HCPCS: 26750; 99203

== ENCOUNTER 2023-11-29 08:45 | Outpatient (REF) | payer MEDICAID, SELFPAY ==
--- NOTE | ~2023-11-29 | XR_ITS ---
EXAMINATION: XR HAND, LEFT CLINICAL INFORMATION: Pain in left thumb COMPARISON: 11/22/2023 TECHNIQUE: PA, lateral, and oblique views of the left hand. FINDINGS: Redemonstration of comminuted fracture of the tuft of the first distal phalanx. Moderate to severe degenerative changes of the first CMC joint and first MCP joint with joint space narrowing and osteophytosis. XR/XR hand LT min 3V IMPRESSION: Redemonstration of comminuted fracture of the tuft of the first distal phalanx. Electronically signed by: Rosetta Mcneil MD 12/27/2023 06:19 PM EDT
== END 2023-11-29 08:46 | disposition home or self-care (01) ==
LOC: HO.HOSX 08:45
DX: M79.642 Pain in left hand (principal); S62.522B Displaced fracture of distal phalanx of left thumb, initial encounter for open fracture
CPT/HCPCS: 73130; 99212

== ENCOUNTER 2023-11-29 09:19 | Outpatient (AMB) | payer MEDICAID, SELFPAY ==
--- NOTE | 2023-11-29 09:28 | A.OFFVIS_ITS ---
Vital Signs 11/29/23 09:32 Height 5 ft 8 in Weight 220 lb BMI 33.4 Handedness Right Intake Visit Reasons: OV-Laceration of finger, Fx phalanges, LT thumb Intake Note: Van is a 53 year old right hand dominant male who presents today for a wound check s/p left thumb laceration as well as small chip fracture off the distal tuft of the distal phalanx, DOI 11/16/23. Patient expresses he is still taking his antibiotic medication. He expresses the stitches have been bothering him so he is hoping they are removed today. Denies numbness and tingling. 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 Today, the patient reports he is feeling much better, and his only source of discomfort is mild pain about the suture site. The patient reports that he has been adherent to all instructions given to him by Dr. Lofton last week. Patient reports no active discharge from the area, no increased erythema, edema, or any evidence of purulence. No other acute complaints or concerns at this time. [facility] Medical History HTN (hypertension) No active medical problems Surgical History Hx of knee surgery Family History Father HTN (hypertension) Mother CAD (coronary artery disease) HTN (hypertension) Stroke Social History Alcohol intake: unknown Current occupational status: unemployed Current occupation: rt handed Review of Systems Const All systems reviewed & are unremarkable except as noted in HPI and below Physical Exam Vital Signs: BMI result Body Mass Index 33.4 Extrem Other: Patient is alert, oriented, and in no acute distress. Neuro: Median, ulnar, radial nerves motor and sensory intact and sensation is normal to the tips of all digits. Vascular: Cap refill brisk Pain: Patient reports mild tenderness to palpation over the suture sites on the distal end of the left thumb. No other tenderness to palpation noted ROM: Patient is able to make a full closed fist and extend fully at this time Skin: Well-healing laceration of the distal left thumb noted Sutures in place No active discharge from laceration at this time There appears to be a normal portion of nail growing in from the proximal nail bed of the left thumb. General: No ecchymosis, erythema, or evidence of infection. Psych: Appears grossly normal Affect normal Attitude cooperative Results Reviewed Results Reviewed: X-rays obtained in the office today and independently reviewed by me, Prakash Núñez PA-C, demonstrate comminuted fracture of the distal phalanx of the left thumb, largely unchanged from previous x-rays. Assessment & Plan Assessment & Plan (1) Open fracture of tuft of distal phalanx of left thumb: Code(s): S62.522B - Displaced fracture of distal phalanx of left thumb, initial encounter for open fracture Category: Medical Plan 1. Open fracture of the tuft of the distal phalanx of the left thumb Date of injury 11/16/2023 Patient appears to be recovering well from his injury Patient is educated about the typical recovery course Patient is educated that due to having no symptoms or signs of infection, he can discontinue use of antibiotics after finishing his current course Patient is amenable to this plan Sutures removed today, Steri-Strips in place Patient is informed that he can continue to gently wash the area with soap and water, but that he should continue to avoid any submersion of the incision for at least another 2 weeks, and then he should wait until the area is effectively closed over in order to be able to do this Patient is also educated to continue to trim his nail short, to avoid the 2 split fragments growing over each other and potential need for nail removal. Patient is educated on the signs and symptoms of infection, and is told to follow-up if he begins to exhibit any of the symptoms Patient will follow-up in 4 weeks with repeat x-rays, sooner with any acute concerns Orders: Orders 2 XR hand LT min 3V Today M79.642 - Pain in left hand Coding Level of Care Code Global (01287) Diagnoses Open fracture of tuft of distal phalanx of left thumb S62.522B
[2023-11-29 09:32] VITALS: BMI 33.4
== END 2023-11-29 10:21 | disposition home or self-care (01) ==
PROVIDERS: PCP Internal Medicine
DX: S62.522B Displaced fracture of distal phalanx of left thumb, initial encounter for open fracture (principal)
CPT/HCPCS: 99024

== ENCOUNTER → 2023-12-22 09:02 | Outpatient (REF) | payer MEDICAID, SELFPAY ==
--- NOTE | ~2023-12-22 | NM_ITS ---
Lexiscan Myocardial perfusion study Indication: Chest pain Technique: The patient was brought in for a Lexiscan perfusion study on 12/22/2023 and was injected 0.4 mg of Lexiscan intravenously. Within a minute of this injection 30 mCi of sestamibi was given intravenously. Images were obtained using the SPECT gamma camera interlaced with the gating device. Images were obtained in supine position. Resting perfusion study was performed on 12/23/2023. Patient was administered 30 mCi of sestamibi intravenously at rest. Images were then obtained in supine position. Total DLP 95 mGy-cm. Images were processed with the software and compared side to side in short axis, horizontal long axis and vertical long axis views. Findings: Raw aquisition reviewed. The stress perfusion study showed no significant perfusion abnormality. Both uncorrected as well as CT attenuation corrected images were reviewed. The gated study shows normal LV systolic function with calculated LVEF of 63%. LV cavity is normal in size. The gated study shows normal wall thickening and contraction of segments. Resting study shows no significant perfusion abnormality. Gating at rest reveals normal wall motion with ejection fraction at 67%. The findings are consistent with no clear reversible or fixed perfusion defects. NM/NM cardiolite stress test Impression: 1. Myocardial perfusion imaging study shows normal myocardial perfusion. 2. Gated LVEF is 63% during stress and 67% during rest. 3. Transient ischemic dilatation not present. EKG component of the test reported separately. Electronically signed by: Florencio Jones MD 12/25/2023 01:17 PM EDT
--- NOTE | 2023-12-22 09:05 | CA_ITS ---
Acquisition Time: 2023-12-22 10:13:41 Total Exercise Time: 00:08:00 Test Indications: EXERTIONAL CHEST PAIN Medications: Protocol: RAFAEL Max HR: 109 BPM 65% of Pred: 167 BPM Max BP: 150/080 mmHG Max Work Load: 10.1 METS Exercise stress test with exercise 8 min of Rafael protocol, achieving 65% MPHR, ( he took Propranolol this am) without anginal symptoms, without arrythmia, with normotensive response to exercise, with nondiagnostic EKG for ischemia. Once placed in recovery he was given Lexiscan injection due to blunted heart rate, without symptoms, without arrythmia, with normotensive reponse to injection, with nondiagnostic EKG for ischemia. Nuclear images pending. Test reviewed with Dr Jones. Referred By: Ross Rodrigez Overread By: KALIN NATH
--- NOTE | 2023-12-22 09:05 | CA_ITS ---
Transthoracic Echocardiogram Patient (Last, First, Middle): Van Otero, Gender: Male Date of : 1970 Age: 53 Procedure Date: 12/22/2023 Procedure Type: Transthoracic Echocardiogram Location: OP Height: 162. cm Weight: 97.98 kg BSA: 2.02 m2 Heart Rate: 52 bpm BP: 118 / 65 mmHg Assistant Sales Director: VIVIANA Referring MD: Ross Rodrigez MD Symptoms: R07.9 - Chest pain, unspecified Study Quality: Adequate ECG Rhythm: Bradycardia Conclusions: - The left ventricular systolic function is normal. The calculated ejection fraction is 67% by biplane method. - There is mild calcification of the aortic valve. - There is systolic anterior motion of the chordae of the mitral valve. Findings Left Ventricle Normal left ventricular cavity size. There is mildly increased left ventricular wall thickness. The left ventricular systolic function is normal. The calculated ejection fraction is 67% by biplane method. There is no evidence of regional wall motion abnormalities. Diastolic function is normal for age. LV peak GLS -17.4%. Right Ventricle Normal right ventricular cavity size and systolic function. Atria Both atria are normal in size. Aortic Valve There is a normal trileaflet aortic valve. There is mild calcification of the aortic valve. There is no aortic valve stenosis. There is no aortic valve regurgitation. Mitral Valve The mitral valve appears normal. There is no mitral valve regurgitation. There is no mitral valve stenosis. There is systolic anterior motion of the chordae of the mitral valve. Pulmonic Valve The pulmonic valve is likely normal. Tricuspid Valve Normal tricuspid valve structure. There is trace tricuspid valve regurgitation. There is no evidence of pulmonary hypertension. Great Vessels The asc aorta is normal in size. Venous The inferior vena cava is normal in size and collapses greater than 50% with inspiration. Pericardium/Pleural There is no evidence of pericardial effusion. Prior Study Comparison No significant change compared to prior study dated: 10/01/2014. Measurements 2D Linear Measurements IVSd: 1.18 0.6-0.9/0.6-1.0 cm LVIDd: 4.15 3.9-5.3/4.2-5.9 cm LVIDd Index: 2.05 2.4-3.2/2.2-3.1 cm/m2 LVIDs: 2.31 2.0-3.6 cm LVPWd: 1.31 0.7-1.1 cm LA Diam: 3.90 2.7-3.8/3.0-4.0 cm LAIDs Index: 1.93 1.5-2.3 cm/m2 LV Mass: 230.13 67-162/88-224 g LV Mass Index: 113.93 43-95/49-115 g/m2 LVOT Diam: 2.20 3.0+(-)1.3 cm 2D Systolic Function EF 4C: 66.70 >55% EF 2C: 67.30 >55% EF BiP: 67.00 >55% Mitral Valve MV Pk E: 0.79 MV PK A: 0.64 MV Decel Time: 237.00 E/A: 1.20 E'Lateral: 8.92 E'Medial: 7.29 E/E' Med: 10.90 E/E' Lat: 8.90 PHT: 69.00 MVA PHT: 3.19 Decel Morrill: 3.34 Aortic Valve AoV Pk Sam: 1.48 AoV Mn Sam: 1.09 AoV VTI: 0.37 AoV Pk Grad: 9.00 Aov Mn Grad: 5.00 DANTE Cont.VTI: 3.38 LVOT LVOT Pk Sam: 1.46 LVOT Mn Sam: 0.96 LVOT VTI: 0.33 LVOT Pk Grad: 9.00 LVOT Mn Grad: 4.00 LVOT Diam: 2.20 LVOT Area: 3.80 Diastolic Function MV Pk E: 0.79 MV Pk A: 0.64 E/A: 1.20 E'Medial: 7.29 E/E' Med: 10.90 E' Laterial: 8.92 E/E' Lat: 8.90 Right Ventricle TAPSE (mm): 25.80 TVS' Sam: 14.40 Tricuspid Valve TR Pk Sam: 1.58 TR Pk Grad: 10.00 RA Press: 3.00 RVSP: 13.00 Great Vessels Aorta Sinus of Valsalva: 3.60 2.0-3.5 cm Ao Asc: 3.60 2.1-3.4 cm Ao Arch: 3.10 Pulmonary Valve PV Pk Sam: 1.17 Peak PV Grad: 5.00 Updated in Other Vendor System with Status of Final Florencio Jones MD electronically signed on 12/24/2023 12:13:33 PM with status of Final
== END ==
LOC: HO.CARD 09:02
PROVIDERS: PCP Internal Medicine; Visit Provider Internal Medicine Cardiovascular Disease
DX: R07.9 Chest pain, unspecified (principal)
CPT/HCPCS: 78452; 93017; 93306; 93356; A9500; J0280; J2785

== ENCOUNTER → 2023-12-22 09:05 | Outpatient (BNV) | payer MEDICAID, SELFPAY | PROVIDERS: PCP Internal Medicine; Visit Provider Nurse Practitioner Family | DX: R07.9 Chest pain, unspecified (principal) | CPT/HCPCS: 78452; 93016; 93018; 93320; 93350; 93356 ==

== ENCOUNTER 2023-12-27 08:59 | Outpatient (AMB) | payer MEDICAID, SELFPAY ==
--- NOTE | 2023-12-27 09:54 | A.OFFVIS_ITS ---
Vital Signs 12/27/23 09:57 Height 5 ft 8 in Weight 220 lb BMI 33.4 Intake Visit Reasons: OV-Lac. of finger, Fx phlanges, LT thumb-w/xray Intake Note: Van is a 53 year old right hand dominant male who presents today for a wound check s/p left thumb laceration as well as small chip fracture off the distal tuft of the distal phalanx, DOI 11/16/23. Patient denies numbness, tingling, locking on finger. He has completed antibiotic treatment. Patient reports no pain or concerns today. Allergies No Known Allergies Allergy (Verified 12/27/23 10:01) HPI HPI OV-Lac. of finger, Fx phlanges, LT thumb-w/xray: Details: Van is a 53 year old right hand dominant [place] speaking man who returns to discuss his left thumb distal phalanx fracture. He says the tip of his left thumb was injured when using a tool at work, DOI: 11/16/23. He was seen in the ED the same day where his thumb was sutured shut and given PO Abx. 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 He says he is doing well and denies any pain. He has completed his Abx as instructed and denies any evidence of infection. He denies any numbness or tingling. He denies any locking or catching. [facility] Medical History HTN (hypertension) No active medical problems Surgical History Hx of knee surgery Family History Father HTN (hypertension) Mother CAD (coronary artery disease) HTN (hypertension) Stroke Social History Alcohol intake: unknown Current occupational status: unemployed Current occupation: rt handed Review of Systems Const All systems reviewed & are unremarkable except as noted in HPI and below Physical Exam Vital Signs: BMI result Body Mass Index 33.4 Const General: no acute distress and alert Orientation/consciousness: patient oriented x3 Neuro General: patient oriented x3 Extrem Other: Evaluation of Upper Extremity: The patient is alert, oriented, and in no acute distress Neuro: Median, Ulnar, Radial nerves motor and sensory intact and sensation is normal to the tips of all digits Vascular: Cap refill brisk ROM: He can make a fist and extend all his digits Good flexor and extensor tendon function to the tip of the thumb. Good flexion & extension at the IP joint He can pinch his thumb against his fingers without pain Longitudinally oriented laceration and fracture to the tip of the thumb, with a longitudinal split of the nail The nail appears to be attached to the nailbed central part of nail plate is now missing, new nail has already grown out from eponychial fold, to ~4-5mm in length The pad of the thumb is not tender No tenderness over the fracture site No erythema, drainage, or evidence of infection Radiographs: 3 views of the left hand, with attention to the thumb, were taken and viewed by me today in clinic. They show a comminuted, minimally displaced, distal phalanx tuft fracture of the thumb, extra-articular, with extension from the tuft to the body of the thumb distal phalanx, with satisfactory fracture alignment and some evidence of interval bony healing. Psych Appearance: grossly normal Affect: normal affect Attitude: cooperative Assessment & Plan Assessment & Plan (1) Open fracture of tuft of distal phalanx of left thumb: Code(s): S62.522B - Displaced fracture of distal phalanx of left thumb, initial encounter for open fracture Category: Medical Plan Assessment & Plan: 1. Left thumb open distal phalanx fracture, comminuted, minimally displaced, extra-articular, 2. And associated longitudinally oriented nail bed injury. S/P injury, DOI: 11/16/23 I educated him about this condition He is doing well and has no complaints today I explained that it will take time for his nail to regrow, and he should trim his nail appropriately as it grows in I discussed activity modification, he is able to use his hand for lightweight activities. he should avoid any heavy pinching or gripping activities, or impact-type activities for the next few weeks. He can follow up prn Scribed for Aide Lofton MD by Jack Lombardi, rn medical surgical, on 12/27/23 at 10:10 AM, EST. Orders: Orders XR hand LT min 3V Today M79.642 - Pain in left hand Coding Level of Care Code Global (74013) Diagnoses Open fracture of tuft of distal phalanx of left thumb X33.332D
[2023-12-27 09:57] VITALS: BMI 33.4
== END 2023-12-27 10:10 | disposition home or self-care (01) ==
PROVIDERS: PCP Internal Medicine; Visit Provider Orthopaedic Surgery
DX: S62.522B Displaced fracture of distal phalanx of left thumb, initial encounter for open fracture (principal)
CPT/HCPCS: 99024

== ENCOUNTER 2023-12-27 09:07 | Outpatient (REF) | payer MEDICAID, SELFPAY ==
--- NOTE | ~2023-12-27 | XR_ITS ---
EXAMINATION: XR HAND, LEFT CLINICAL INFORMATION: Left hand pain. COMPARISON: 11/29/2023 TECHNIQUE: PA, lateral, and oblique views of the left hand. FINDINGS: Soft tissues are swollen at the thumb. Again seen is a comminuted fracture of the thumb distal phalangeal tuft and shaft. Alignment appears unchanged as compared to prior. No appreciable intra-articular abnormality. Bone mineralization is normal. Mild osteoarthritis at the distal radioulnar, first CMC, first and third MCP, and multifocal DIP joint osteoarthritis. No erosions. XR/XR hand LT min 3V IMPRESSION: Unchanged alignment of the comminuted fracture of the thumb distal phalangeal tuft and shaft. Mild multifocal osteoarthritis. Electronically signed by: Daren Holliday MD 01/09/2024 11:51 PM EDT
== END 2023-12-27 09:08 | disposition home or self-care (01) ==
LOC: HO.HOSX 09:07
PROVIDERS: PCP Internal Medicine; Visit Provider Orthopaedic Surgery
DX: M79.642 Pain in left hand (principal); S62.522B Displaced fracture of distal phalanx of left thumb, initial encounter for open fracture
CPT/HCPCS: 73130; 99212

== ENCOUNTER 2024-01-02 15:12 | Outpatient (AMB) | payer MEDICAID, SELFPAY ==
[2024-01-02 15:29] VITALS: BP 120/80; PULSE 69; BMI 33.9
--- NOTE | 2024-01-02 15:29 | MHC.OFFVIS ---
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 Not having recurrent chest pain anymore. He says blood pressure is much better control. Myocardial perfusion was switch to vaso dilator myocardial perfusion imaging within normal limits. He did exercise for 8 minutes with suboptimal heart rate most likely propranolol therapy. Echocardiogram which does not show any significant abnormality. Feeling well at this point in time. PFSH Medical History HTN (hypertension) No active medical problems Surgical History Hx of knee surgery Family History Father HTN (hypertension) Mother CAD (coronary artery disease) HTN (hypertension) Stroke Social History Alcohol intake: unknown Current occupational status: unemployed Current occupation: rt handed Review of Systems Const Denies chills, Denies fatigue, Denies fever(s), Denies frequent falls, Denies weakness, Denies weight gain and Denies weight loss ENT Denies dizziness Card Denies chest pain, Denies leg edema, Denies lightheadedness, Denies palpitations, Denies dyspnea, Denies dyspnea on exertion, Denies orthopnea and Denies other (loss of consciousness) Resp Denies cough, Denies dyspnea and Denies dyspnea on exertion GI Denies hematochezia and Denies change in stool character Musc Denies abnormal gait, Denies muscle weakness, Denies numbness, Denies radiating pain into limb and Denies tingling Neuro Denies Abnormal speech present, Denies abnormal gait, Denies dizziness, Denies frequent falls, Denies numbness, Denies tingling and Denies weakness Endo Denies fatigue and Denies palpitations Physical Exam Vital Signs: Last Vital Signs Pulse 69 01/02/24 15:29 BP 120/80 01/02/24 15:29 BMI result Body Mass Index 33.9 Const General: cooperative, comfortable, no acute distress, alert, awake and Physically active Nutritional Appearance: obese Orientation/consciousness: patient oriented x3 Limitations: no limitations HEENT Head: Yes normocephalic and Yes atraumatic Neck Neck: Yes trachea midline, Yes supple and Yes no JVD Resp Effort & Inspection: normal respiratory effort Auscultation: clear to auscultation bilaterally Cardio Jugular venous distension: no JVD Palpation: normal PMI Rate: regular rate Rhythm: regular rhythm Heart sounds: S1 normal heart sound present, S2 normal heart sound present, no click, no gallops and no murmurs GI Auscultation: normal bowel sounds Skin General skin exam: no rashes or lesions noted Neuro General: patient oriented x3 and no focal motor deficits Speech: No Abnormal speech present Extrem General: Yes no clubbing, cyanosis or edema Psych Appearance: grossly normal Assessment & Plan Assessment & Plan (1) Exertional chest pain: Code(s): R07.9 - Chest pain, unspecified Category: Medical Plan: Exertional chest pain with normal myocardial perfusion imaging as normal echocardiogram. Most likely due to exertional high blood pressure which is now resolved with therapy. Importance of good blood pressure control was discussed. Advised to call me with recurrent symptoms. (2) HTN (hypertension): Code(s): I10 - Essential (primary) hypertension Category: Medical Plan: Hypertension which is currently well optimized advised to continue propranolol therapy. Importance of good blood pressure control was discussed. Low-salt diet was discussed advised to maintain adequate hydration. Advised to monitor blood pressure at home maintain a log. Goal blood pressure less than 130/84. Continue statin therapy with target goal LDL less than 70 mg/dL. Will follow up in the clinic if need be. Thank you for allowing me to partake in his care Coding Level of Care Code Tele Est Pt Level 3 (64379) Diagnoses Exertional chest pain R07.9 HTN (hypertension) I10
== END 2024-01-02 15:54 | disposition home or self-care (01) ==
PROVIDERS: PCP Internal Medicine; Visit Provider Internal Medicine Cardiovascular Disease
DX: R07.9 Chest pain, unspecified (principal); I10 Essential (primary) hypertension
CPT/HCPCS: 99213

== ENCOUNTER → 2024-01-02 15:12 | Outpatient (BNVA) | payer MEDICAID, SELFPAY | PROVIDERS: PCP Internal Medicine; Visit Provider Internal Medicine Cardiovascular Disease | DX: R07.9 Chest pain, unspecified (principal); I10 Essential (primary) hypertension | CPT/HCPCS: 99212 ==